=== PATIENT | female | born 1965 | race Caucasian/White ===

== ENCOUNTER 2018-01-24 17:46 | Emergency (ER) | payer MEDICARE ==
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
[2018-01-24 18:06] LABS: BASO % 0.3 % (0-6); EOS % 3.1 % (0-6); GRAN % 56.2 % (47-80); HEMOGLOBIN 13.6 gm/dl (11.6-16.0); LYMPH % 34.5 % (16-45); MEAN CELL VOLUME 85.9 fl (81-97); MEAN CORPUSCULAR HEMOGLOBIN 27.8 pg (27-33); MEAN CORPUSCULAR HGB CONC 32.4 g/dl (32-36); MEAN PLATELET VOLUME 8.6 fl (7.4-10.4); MONO % 5.9 % (0-9); PLATELET COUNT 379 K/uL (130-400); RED BLOOD COUNT 4.89 M/uL (3.80-5.40); RED CELL DISTRIBUTION WIDTH 13.7 % (11.5-14.5); WHITE BLOOD COUNT W/O DIFF 7.1 K/uL (4.2-12.2)
[2018-01-24 18:18] LABS: BLOOD UREA NITROGEN 8 mg/dL (6-20); CREATININE 0.8 mg/dL (0.5-0.9); EST GLOMERULAR FILTRATION RATE > 60 mL/min; PARTIAL THROMBOPLASTIN TIME 30.6 SECONDS (24.5-39.1); PROTHROMBIN TIME (PATIENT) 10.4 SECONDS (9.5-12.1)
[2018-01-24 18:19] LABS: TOTAL PROTEIN 7.8 g/dL (6.6-8.7)
[2018-01-24 18:21] LABS: GLUCOSE,RANDOM 142 mg/dL (74-109)
[2018-01-24 18:23] LABS: ALT/SGPT 26 U/L (<33)
[2018-01-24 18:24] LABS: ALB/GLOB RATIO 1.5 (1.1-1.8); ALBUMIN 4.7 g/dL (4.0-5.0); ALKALINE PHOSPHATASE 94 U/L (35-104); AST/SGOT 28 U/L (10.0-35.0)
--- NOTE | 2018-01-25 22:37 | CT SCAN REPORT ---
EXAM: CT SCAN HEAD WO CONTRAST HISTORY: PATIENT HAS RIGHT-SIDED FACIAL DROOP. TECHNIQUE: Serial axial CT scan of the head was performed at 2.5 mm intervals from the base of the skull to the apex without the use of intravenous contrast. COMPARISON: Comparison CT scan of the head dated 10/03/2015 is provided. FINDINGS: The ventricles, cisterns, sulci appear within normal limits for size , shape, and attenuation. There is no mass or mass effect. The warner and white differentiation appear within normal limits. There is no CT evidence of intra or extraaxial fluid collection to suggest bleeding. Bone windows demonstrate no CT evidence of a fracture or dislocation of the skull. Paranasal sinuses are unremarkable. IMPRESSION: STABLE CT APPEARANCE OF THE BRAIN WITH RESPECT TO THE PRIOR EXAMINATION. JOB NUMBER: [id number] [facility]
== END 2018-01-24 18:51 | disposition left against medical advice (07) ==
LOC: ER 17:46
DX: R29.810 Facial weakness (principal); R41.82 Altered mental status, unspecified; R51 Headache; I10 Essential (primary) hypertension; Z87.820 Personal history of traumatic brain injury
CPT/HCPCS: 36416; 70450; 80053; 82948; 83735; 84484; 85025; 85610; 85730; 93005; 93010; 99284